=== PATIENT | male | born 1965 | race Caucasian/White ===

== ENCOUNTER 2022-01-14 11:55 | Emergency (ER) | payer OTHER ==
[2022-01-14 12:01] VITALS: BP 188/75; PULSE 75; RESP 18; TEMP 97; BMI 28.5
== END 2022-01-14 14:33 | disposition home or self-care (01) ==
LOC: JER 11:55
DX: M54.2 Cervicalgia (principal); S40.212A Abrasion of left shoulder, initial encounter; S50.312A Abrasion of left elbow, initial encounter; V19.40XA Pedal cycle driver injured in collision with unspecified motor vehicles in traffic accident, initial encounter
CPT/HCPCS: 70450-TC; 71046-TC-FY; 72125-TC; 72170-TC-FY; 73070-TC-LT-FY; 76604; 76705-TC; 93308; 99284-25

== ENCOUNTER 2023-01-09 14:55 | Inpatient (IN) | payer OTHER ==
[2023-01-09] MEDS ORDERED: MECLIZINE HCL 25 MG TABLET (FP) PO ONE (15:36)
[2023-01-09] MEDS ORDERED: MECLIZINE HCL 25 MG TABLET (FP) ONE (16:11)
[2023-01-09 17:48] LABS: HEMATOCRIT 41.4 % (35.4-49); HEMOGLOBIN 14.4 G/dL (11.7-16.9); MCH 31.6 pg (25.7-33.7); MCHC 34.8 g/dl (32.0-35.9); MEAN CELL VOLUME 90.7 fl (80-96); MEAN PLT VOLUME 8.8 fl (7.5-11.1); RBC 4.56 10^6/uL (4.00-5.60); WHITE BLOOD COUNT 12.1 10^3/uL (4.0-10.8)
[2023-01-09 17:53] LABS: ALBUMIN 4.5 g/dl (3.4-5.0); BLOOD UREA NITROGEN 14.8 mg/dl (7-18); CALCIUM 9.5 mg/dl (8.5-10.1); CREATININE 0.8 mg/dl (0.6-1.3); POTASSIUM 4.1 mmol/L (3.5-5.1); SGOT/AST 30.5 U/L (15-37); SGPT/ALT 26.4 U/L (7-52); TOT PROT 6.3 g/dl (6.4-8.2)
[2023-01-09 18:17] LABS: PLATELET ESTIMATE ADEQUATE
[2023-01-09] MEDS ORDERED: diazePAM 5 MG TABLET PO ONE (18:20)
[2023-01-09] MEDS ORDERED: diazePAM 5 MG TABLET ONE (18:24)
[2023-01-09 19:22] LABS: BILIRUBIN,TOTAL 0.9 mg/dL (0.2-1)
[2023-01-09 22:02] LABS: EPITHELIAL CELLS RARE /hpf
[2023-01-10] MEDS ORDERED: MECLIZINE HCL 25 MG TABLET (FP) PO PRN (06:08)
[2023-01-10 07:23] VITALS: BMI 28.4
[2023-01-10 07:26] LABS: BASO % 0.3 % (0-2.0); EOS % 1.1 % (0-4.5); HEMATOCRIT 39.3 % (35.4-49); HEMOGLOBIN 13.2 GM/dL (11.7-16.9); LYMPH % 28.7 % (8-40); MCH 30.2 pg (25.7-33.7); MCHC 33.7 g/dl (32.0-35.9); MEAN CELL VOLUME 89.4 fl (80-96); MEAN PLT VOLUME 10.1 fl (7.5-11.1); MONO % 7.9 % (3.8-10.2); PLATELET COUNT 184 10^3/uL (134-434); RBC 4.39 M/mm3 (4.00-5.60); WHITE BLOOD COUNT 6.5 K/mm3 (4.0-10.0)
[2023-01-10 07:42] LABS: POTASSIUM 3.7 mmol/L (3.5-5.1)
[2023-01-10] MEDS ORDERED: HEPARIN NA (PORCINE) 5,000 UNITS/ML 1ML VIAL IVPUSH PRN ×2 (07:43)
[2023-01-10 07:48] LABS: BLOOD UREA NITROGEN 12.2 mg/dL (7-18); CALCIUM 8.5 mg/dL (8.5-10.1); MAGNESIUM 2.1 mg/dL (1.8-2.4)
[2023-01-10 07:49] LABS: ALBUMIN 3.7 g/dl (3.4-5.0)
[2023-01-10 07:51] LABS: CREATININE 0.8 mg/dL (0.55-1.3); PHOSPHOROUS 3.5 mg/dL (2.5-4.9)
[2023-01-10 07:52] LABS: BILIRUBIN,TOTAL 1.1 mg/dL (0.2-1); TOT PROT 6.2 g/dl (6.4-8.2)
[2023-01-10] MEDS ORDERED: ASPIRIN 81 MG CHEWABLE TABLETS PO ONE (08:00)
[2023-01-10] MEDS: HEPARIN INFUSION - 25,000 UNITS/500 ML INFUS.BAG IVPB SCH (08:07)
[2023-01-10] MEDS ORDERED: METOPROLOL TARTRATE 25 MG TABLET (FP) PO SCH ×3 (10:00→22:00)
[2023-01-10] MEDS ORDERED: RAMIPRIL 2.5 MG CAPSULE PO SCH (10:00)
[2023-01-10] MEDS ORDERED: ENOXAPARIN NA (PORCINE) 40 MG/0.4 ML DISP.SYRIN SQ SCH (10:00)
[2023-01-10] MEDS ORDERED: NICOTINE 7 MG/24 HOURS TOPICAL PATCH TD SCH (10:00)
[2023-01-10] MEDS ORDERED: RAMIPRIL 1.25 MG CAPSULE PO SCH (10:00)
[2023-01-10] MEDS ORDERED: METOPROLOL TARTRATE 25 MG TABLET (FP) PO ONE (10:15)
[2023-01-10] MEDS ORDERED: CLOPIDOGREL BISULFATE 300 MG TABLET PO ONE (14:00)
[2023-01-10] MEDS ORDERED: RAMIPRIL 5 MG CAPSULE PO SCH (14:39)
[2023-01-10] MEDS ORDERED: ACETAMINOPHEN 325 MG TABLET (FP) PO ONE ×2 (18:23→18:42)
[2023-01-10] MEDS ORDERED: ACETAMINOPHEN 325 MG TABLET (FP) ONE (18:44)
[2023-01-10] MEDS ORDERED: ATORVASTATIN CA 80 MG TABLET (FP) PO SCH (22:00)
[2023-01-10] MEDS ORDERED: ROSUVASTATIN CA 10 MG TABLET PO SCH (22:00)
[2023-01-11 04:28] VITALS: BP 128/69; PULSE 43; RESP 11
[2023-01-11 06:49] VITALS: TEMP 98.2
[2023-01-11] MEDS: HEPARIN INFUSION - 25,000 UNITS/500 ML INFUS.BAG IVPB SCH (07:29)
[2023-01-11 07:49] LABS: POTASSIUM 4.4 mmol/L (3.5-5.1)
[2023-01-11 07:56] LABS: CALCIUM 8.2 mg/dL (8.5-10.1)
[2023-01-11 07:57] LABS: BLOOD UREA NITROGEN 13.6 mg/dL (7-18)
[2023-01-11 08:00] LABS: CREATININE 0.8 mg/dL (0.55-1.3)
[2023-01-11] MEDS ORDERED: amLODIPine BESYLATE 5 MG TABLET (FP) PO SCH (10:00)
[2023-01-11] MEDS ORDERED: CLOPIDOGREL BISULFATE 75 MG TABLET (FP) PO SCH (10:00)
[2023-01-11] MEDS ORDERED: ASPIRIN COATED 81 MG TABLET.EC PO SCH (10:00)
[2023-01-11] MEDS ORDERED: metoPROLOL SUCCINATE 25 MG TAB.SR.24H (FP) PO SCH (10:00)
[2023-01-11] MEDS ORDERED: INSULIN (NOVOLOG) ASPART 100 UNITS/ML 10ML VIAL ONE (11:07)
== END 2023-01-11 09:15 | disposition short-term general hospital (02) | DRG 282 ==
LOC: FER 14:55 → FM/S 18:25 → J2W 01-10 04:26 → OBSVTOIN 01-10 05:48
PROVIDERS: ADMIT Internal Medicine; ATTEND Internal Medicine
DX: I21.4 Non-ST elevation (NSTEMI) myocardial infarction (principal); E78.5 Hyperlipidemia, unspecified; I10 Essential (primary) hypertension; M54.16 Radiculopathy, lumbar region; F17.210 Nicotine dependence, cigarettes, uncomplicated; I16.0 Hypertensive urgency
CPT/HCPCS: 36415; 70450-TC; 71045-TC-FY; 80048; 80053; 80061; 81003; 81015; 82550; 82553; 83036; 83735; 84100; 84443; 84484; 85025; 85027; 85730; 87635; 93005; 93306-TC; 99285-25; G0378; J1644